=== PATIENT | female | born 1990 ===

== ENCOUNTER → 2023-12-14 | Outpatient (CLI) | payer BC | END | disposition home or self-care (01) | LOC: LAB 17:54 → LAB SHORT 17:54 | DX: O09.93 Supervision of high risk pregnancy, unspecified, third trimester (principal) | CPT/HCPCS: 87081; 87150 ==

== ENCOUNTER 2024-01-02 06:45 | Inpatient (IN) | payer BC ==
[~2024-01-02] VITALS: Ht 162.6 cm; Wt 81.6 kg
[2024-01-02] VITALS (22 sets, daily range): BP systolic 109–152; BP diastolic 57–98
[2024-01-02] MEDS ORDERED: FentaNYL Citrate 50 MCG/ML 2 ML Injection IV PRN (07:20)
[2024-01-02] MEDS ORDERED: FentaNYL 2mcg/ml-Bup 0.1% Epd 250 ML EPI PRN (07:25)
[2024-01-02] MEDS ORDERED: Acetaminophen 500 MG Tab PO PRN ×2 (07:25→11:35)
[2024-01-02] MEDS ORDERED: Tranexamic Acid 100 ML IV SCH (07:25)
[2024-01-02] MEDS ORDERED: Lactated Ringer's 1,000 ML IV SCH ×3 (07:25→11:35)
[2024-01-02] MEDS ORDERED: Misoprostol 200 MCG Tab XX PRN (07:25)
[2024-01-02] MEDS ORDERED: Methylergonovine Maleate 0.2MG / ML 1ML Amp IM PRN ×2 (07:25→11:40)
[2024-01-02] MEDS ORDERED: Calcium Carbonate 500 MG Tab Chew PO SCH (07:25)
[2024-01-02] MEDS ORDERED: Carboprost Tromethamine 250 MCG/ML 1ML Amp IM PRN ×2 (07:25→11:35)
[2024-01-02] MEDS ORDERED: OXYTOCIN/RINGER'S LACTATE 500 ML IV SCH ×2 (07:25→11:40)
[2024-01-02] MEDS ORDERED: Oxytocin 10 Unit / ML Vial IM PRN (07:25)
[2024-01-02] MEDS ORDERED: Misoprostol 200 MCG Tab PR PRN ×2 (07:25→11:40)
[2024-01-02] MEDS ORDERED: ePHEDrine Sulfate 50 MG/ML 1ML Injection XX PRN (07:25)
[2024-01-02] MEDS ORDERED: Lactated Ringer's 1,000 ML IV PRN (07:25)
[2024-01-02] MEDS ORDERED: Ondansetron HCl 2 MG / ML 2ML Vial IV PRN (07:25)
[2024-01-02 07:52] LABS: BASOPHILS ABSOLUTE AUTO 0.03 K/mm3 (0.00-0.23); BASOPHILS PERCENT AUTO 0 % (0-2); EOSINOPHILS ABSOLUTE AUTO 0.04 K/mm3 (0.00-0.68); EOSINOPHILS PERCENT AUTO 0 % (0-6); Hematocrit 35.8 % (33.0-51.0); Hemoglobin 12.6 g/dL (11.5-16.0); IMMATURE GRAN ABSOLUTE AUTO 0.07 K/mm3 (0.00-0.10); IMMATURE GRAN PERCENT AUTO 1 % (0-1); LYMPHOCYTES ABSOLUTE AUTO 1.76 K/mm3 (0.84-5.20); LYMPHOCYTES PERCENT AUTO 18 % (21-46); MONOCYTES ABSOLUTE AUTO 0.78 K/mm3 (0.16-1.47); MONOCYTES PERCENT AUTO 8 % (4-13); Mean Corpuscular HGB 33.8 pg (26.0-34.0); Mean Corpuscular HGB Conc 35.2 g/dL (31.5-36.5); Mean Corpuscular Volume 96 fL (80-100); Mean Platelet Volume 12.6 fL (9.1-12.4); NEUTROPHILS ABSOLUTE AUTO 6.97 K/mm3 (1.96-9.15); NEUTROPHILS PERCENT AUTO 72 % (41-73); Platelet Count 124 K/mm3 (150-400); RDW Coefficient Variation 12.2 % (11.7-14.2); RDW Standard Deviation 42.1 fL (35.1-46.3); Red Blood Cell Count 3.73 M/mm3 (3.80-5.20); White Blood Cell Count 9.65 K/mm3 (4.00-11.30)
[2024-01-02] MEDS ORDERED: SYNTHROID112 M12 PO (08:01)
[2024-01-02] MEDS ORDERED: Silver Nitr/Potassium Nitrate 1 EA APPL TOP ONE (10:55)
[2024-01-02] MEDS ORDERED: Docusate Sodium 100 MG Cap PO PRN (11:30)
[2024-01-02] MEDS ORDERED: Witch Hazel/Glycerin PADS TOP PRN (11:35)
[2024-01-02] MEDS ORDERED: Ibuprofen 400 MG Tab PO PRN (11:35)
[2024-01-02] MEDS ORDERED: Benzocaine Topical Anesthetic Spray 60GM TOP PRN (11:40)
[2024-01-02] MEDS ORDERED: Lanolin Cream TOP PRN (11:40)
[2024-01-02] MEDS ORDERED: Ketorolac Tromethamine 30mg Vial IV ONE (12:00)
[2024-01-02] MEDS ORDERED: Ketorolac Tromethamine 30mg Vial IV PRN (18:00)
[2024-01-03 02:28] VITALS: BP 130/74
[2024-01-03] MEDS ORDERED: Levothyroxine Sodium 0.112 MG Tab PO SCH (06:00)
[2024-01-03] MEDS ORDERED: IBUP800 PO (07:27)
[2024-01-03] MEDS ORDERED: PRENATAL TABLE1 EAC2 PO (07:27)
[2024-01-03 08:09] VITALS: BP 113/74
[2024-01-03] MEDS ORDERED: Prenatal Vit/FE Fumarate/FA 1 Tab PO SCH (09:00)
[2024-01-03 12:21] VITALS: BP 122/76
== END 2024-01-03 12:34 | disposition home or self-care (01) | DRG 768 ==
LOC: OBS 06:45 → BC 06:51 → OBS 07:05 → BC 07:09
PROVIDERS: ADMIT Obstetrics & Gynecology
PROC: 10E0XZZ Delivery of Products of Conception, External Approach (ICD-10-PCS; principal; 2024-01-03)
PROC: 0UBMXZZ Excision of Vulva, External Approach (ICD-10-PCS; 2024-01-03)
PROC: 3E0R3BZ Introduction of Anesthetic Agent into Spinal Canal, Percutaneous Approach (ICD-10-PCS; 2024-01-03)
PROC: 00HU33Z Insertion of Infusion Device into Spinal Canal, Percutaneous Approach (ICD-10-PCS; 2024-01-03)
PROC: 0HQ9XZZ Repair Perineum Skin, External Approach (ICD-10-PCS; 2024-01-03)
DX: O99.284 Endocrine, nutritional and metabolic diseases complicating childbirth (principal); Z37.0 Single live birth; Z3A.39 39 weeks gestation of pregnancy; E03.9 Hypothyroidism, unspecified; O99.892 Other specified diseases and conditions complicating childbirth; N90.89 Other specified noninflammatory disorders of vulva and perineum; O70.0 First degree perineal laceration during delivery
CPT/HCPCS: 36415; 51702; 59025; 85025; 86850; 86900; 86901; 88305; A9270; J2590; J7120

== ENCOUNTER → 2025-03-20 | Outpatient (CLI) | payer BC ==
[~2025-03-20] MED LIST: IBUP800 PO; LEVSOD100 PO; METO10 PO; PRENATAL TABLE1 EAC2 PO; SYNTHROID112 M12 PO
[2025-03-20 14:35] LABS: Campylobacter Sp Not Detected (NOT DETECT); E. Coli O157 Not Detected (NOT DETECT); Enteroaggregative E. coli-EAEC Not Detected (NOT DETECT); Enteropathogenic E. coli-EPEC Not Detected (NOT DETECT); Enterotoxigenic E. coli-ETEC Not Detected (NOT DETECT); Salmonella Sp Not Detected (NOT DETECT); Shiga Toxin-prod E. coli-STEC Not Detected (NOT DETECT); Shigella/Enteroin E. coli-EIEC Not Detected (NOT DETECT); Vibrio Sp Not Detected (NOT DETECT)
[2025-03-24 22:42] LABS: CALPROTECTIN,FECAL 9 ug/g (<=49)
== END ==
LOC: LAB 09:27 → LAB SHORT 09:27
PROVIDERS: Family Medicine
DX: K52.9 Noninfective gastroenteritis and colitis, unspecified (principal)
CPT/HCPCS: 87507